=== PATIENT | female | born 1950 | race Caucasian/White ===

== ENCOUNTER 2024-01-30 11:28 | Outpatient (CLI) | payer MEDICARE | END 2024-01-30 11:29 | disposition home or self-care (01) | LOC: CSHMAMMO 11:28 | PROVIDERS: ATTEND Family Medicine | DX: Z12.31 Encounter for screening mammogram for malignant neoplasm of breast (principal) | CPT/HCPCS: 77063; 77067 ==

== ENCOUNTER 2024-03-13 12:10 | Outpatient (CLI) | payer MEDICARE | END 2024-03-13 12:11 | disposition home or self-care (01) | LOC: CSHMAMMO 12:10 | PROVIDERS: ATTEND Family Medicine | DX: Z78.0 Asymptomatic menopausal state (principal); M85.851 Other specified disorders of bone density and structure, right thigh | CPT/HCPCS: 77080 ==